=== PATIENT | male | born 2000 | race Caucasian/White ===

== ENCOUNTER 2018-09-15 00:38 | Emergency (ER) | payer OTHER ==
[~2018-09-15] VITALS: Ht 188 cm; Wt 101.0 kg
--- NOTE | 2018-09-15 02:00 | NUR ---
PT HERE FOR INJURY TO NOSE. PT TO HAVE CT. PT HAS NO NEEDS AT THIS TIME. CALL LIGHT IN REACH
[2018-09-15] MEDS ORDERED: LIDOCAINE-MPF 1%, 5ML ONE (03:18)
[2018-09-15] MEDS ORDERED: OXYMETAZOLINE NASAL SPRAY 0.05%, 15ML ONE (03:29)
[2018-09-15 03:35] VITALS: BP 127/72
--- NOTE | 2018-09-15 03:39 | NUR ---
PA AT BEDSIDE TO SUTURE
[2018-09-15] MEDS ORDERED: BACITRACIN ZINC OINT 500U/GM, 0.9 GM ONE (04:22)
== END 2018-09-15 04:31 | disposition home or self-care (01) ==
LOC: EDBD 00:38 → ED 01:36
DX: S02.2XXA Fracture of nasal bones, initial encounter for closed fracture (principal); S09.8XXA Other specified injuries of head, initial encounter; Y04.8XXA Assault by other bodily force, initial encounter; Y93.89 Activity, other specified; Y92.89 Other specified places as the place of occurrence of the external cause; Y99.8 Other external cause status
CPT/HCPCS: 12011; 70450; 70486; 72125; 99284

== ENCOUNTER 2020-05-18 21:19 | Emergency (ER) | payer SELFPAY ==
[~2020-05-18] VITALS: Ht 188 cm; Wt 94.7 kg
--- NOTE | 2020-05-18 21:46 | NUR ---
PT NOTICED [facility] ON MID SACRAL REGION ABOUT A COUPLE DAYS AGO, STATES 10/10 PAIN. PT RESTING IN GURNEY, CALL LIGHT WITHIN REACHED, PLACED ON 02 AND BP CUFF. ERP AT BEDSIDE
[2020-05-18] MEDS ORDERED: LIDOCAINE 2%, 20ML SQ ONE (22:00)
[2020-05-18] MEDS ORDERED: LIDOCAINE-MPF 2% ,5ML ONE (22:08)
[2020-05-18 23:11] VITALS: BP 100/50
== END 2020-05-18 23:18 | disposition home or self-care (01) ==
LOC: ED 22:16
DX: L05.01 Pilonidal cyst with abscess (principal)
CPT/HCPCS: 10060; 10080; 99283

== ENCOUNTER 2020-07-27 22:13 | Emergency (ER) | payer OTHER ==
[~2020-07-27] VITALS: Ht 188 cm; Wt 91.0 kg
[2020-07-27 22:16] VITALS: BP 117/47
--- NOTE | 2020-07-27 22:53 | NUR ---
seen and examined by PA in triage. patient discharged with prescriptions and instruction. verbalized understanding.
== END 2020-07-27 22:55 | disposition home or self-care (01) ==
LOC: ED 22:30
DX: L05.01 Pilonidal cyst with abscess (principal); Z88.0 Allergy status to penicillin
CPT/HCPCS: 99283